=== PATIENT | female | born 1960 | race African-American/Black ===

== ENCOUNTER → 2017-06-23 | Outpatient (CLI) | payer OTHER ==
[2015-05-07 09:43] VITALS: BP 146/79
[~2017-06-23] MED LIST: ADVAIR; ALPR0.5T6 PO; ATIVAN; AZIT250T6 PO; BENZ100C PO; CETI10TA16 PO; CLON0.1T PO; CLONIDINE; DEXL60CA2 PO; FLUO20TA11 PO; FLUT1DIS3 IH; HUM100VI5 SQ; HYDR25TA PO; IPRA12.9 IH; LACT10SO PO; LATA2.5D3 EACHEYE; LISI10TA2 PO; LISINOPRIL; MELO15TA23 PO; OLOP2.5D OU; OMEP40CA5 PO; POTA10CA PO; POTASSIUM; RANI300T PO; ROPI1TAB PO; TIZA4TAB PO; TRAM50TA PO; TRAZ-90 PO; ZOLP10TA4 PO; ZOLPIDEM
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
== END | disposition home or self-care (01) ==
LOC: RAD 16:19
PROVIDERS: ATTEND Nurse Practitioner Family
DX: M47.896 Other spondylosis, lumbar region (principal); M12.88 Other specific arthropathies, not elsewhere classified, other specified site
CPT/HCPCS: 72100

== ENCOUNTER → 2017-06-26 | Outpatient (CLI) | payer OTHER ==
[2015-05-07 09:43] VITALS: BP 146/79
[2017-06-26 10:33] LABS: BASO % 1 % (0-3); EOS # 0.1 x10^3/uL (0.0-0.7); EOS % 2 % (0-3); HEMATOCRIT 35.7 % (36.0-47.0); LYMPH # 2.6 x10^3/uL (1.0-4.8); LYMPH % 42 % (24-48); MEAN CORPUSCULAR HEMOGLOBIN 28 pg (25-35); MEAN CORPUSCULAR HGB CONC 34 g/dL (31-37); MEAN CORPUSCULAR VOLUME 84 fL (79-100); MONO # 0.6 x10^3/uL (0.0-1.1); MONO % 10 % (0-9); NEUT # 2.8 x10^3uL (1.8-7.7); NEUT % 46 % (31-73); PLATELET COUNT 257 x10^3/uL (140-400); RED BLOOD COUNT 4.26 x10^6/uL (3.50-5.40); RED CELL DISTRIBUTION WIDTH 13.5 % (11.5-14.5); WHITE BLOOD COUNT 6.2 x10^3/uL (4.0-11.0)
[2017-06-26 10:37] LABS: BILIRUBIN,URINE NEG (NEG); CLARITY,URINE CLEAR; COLOR,URINE YELLOW; GLUCOSE,URINE NEG (NEG)
[2017-06-26 10:38] LABS: BACTERIA,URINE 0 /HPF (0-FEW); NITRITE,URINE NEG (NEG); RBC,URINE 0 /HPF (0-2); SQUAMOUS EPITHELIAL CELL,UR OCC /LPF; UROBILINOGEN,URINE 0.2 mg/dL (0.2 mg/dL); WBC,URINE 0 /HPF (0-4)
[2017-06-26 10:44] LABS: ALBUMIN 3.6 g/dL (3.4-5.0); DIRECT BILIRUBIN 0.1 mg/dL (0.0-0.2); GFR 68.9; POTASSIUM 3.9 mmol/L (3.5-5.1); TOTAL BILIRUBIN 0.3 mg/dL (0.2-1.0); TOTAL PROTEIN 8.4 g/dL (6.4-8.2)
[2017-06-26 13:47] LABS: THYROID STIM HORMONE (TSH) 2.44 uIU/mL (0.358-3.740)
[2017-06-27 02:11] LABS: HEMOGLOBIN A1C 5.9 % (4.8-5.6)
== END | disposition home or self-care (01) ==
LOC: LAB 09:51
PROVIDERS: ATTEND Nurse Practitioner Family
DX: E10.9 Type 1 diabetes mellitus without complications (principal); R53.83 Other fatigue; Z87.891 Personal history of nicotine dependence
CPT/HCPCS: 36415; 80048; 80061; 80076; 81001; 83036; 84443; 85025

== ENCOUNTER → 2017-08-11 | Outpatient (CLI) | payer OTHER ==
[2015-05-07 09:43] VITALS: BP 146/79
--- NOTE | 2017-08-11 12:00 | CARD ---
MR#: [id number] Date of Study: 08/11/2017 Ordering Physician: SHAHANA GARCIA, Referring Physician: Rebecca ROJAS: Chapo [facility] APPROVED REPORT EXAM: Two-dimensional and M-mode echocardiogram with Doppler and color Doppler. Other Information Quality : Good INDICATION Arrhythmia DX SECOND DEGREE AV BLOCK 2D DIMENSIONS Left Atrium(2D)2.7 (1.6-4.0cm)IVSd1.2 (0.7-1.1cm) Aortic Root(2D)2.7 (2.0-3.7cm)LVDd3.9 (3.9-5.9cm) LVOT Diameter2.0 (1.8-2.4cm)PWd1.2 (0.7-1.1cm) LVDs2.6 (2.5-4.0cm)FS (%) 33.8 % SV41.8 mlLVEF(%)63.3 (>50%) Aortic Valve AoV Peak Zachery.114.4cm/sAoV VTI23.8cm AO Peak GR.5.2mmHgLVOT Peak Zachery.76.5cm/s LVOT VTI 14.55cmAO Mean GR.3mmHg JOCELYN (VMAX)2.76aj3RMA (VTI)1.82cm2 Mitral Valve MV E Xmekfydt39.1cm/sMV DECEL ZUSZ507ac MV A Qcdjkzbc70.6cm/sE/A Ratio1.0 Tricuspid Valve TR P. Izbdumtw315cl/sRAP TXNNHLOW1nuNg TR Peak Gr.18mtXtQTVE61eeXn LEFT VENTRICLE The left ventricle is normal size. There is mild concentric left ventricular hypertrophy. Left ventri keily systolic function is normal. The Ejection Fraction is 55-60%. There is normal LV segmental wall m otion. Transmitral Doppler flow pattern is Grade I-abnormal relaxation pattern. RIGHT VENTRICLE The right ventricle is normal size. The right ventricular systolic function is normal. ATRIA The left atrium size is normal. The right atrium size is normal. The interatrial septum is intact wit h no evidence for an atrial septal defect or patent foramen ovale as noted on 2-D or Doppler imaging. AORTIC VALVE The aortic valve is mildly thickened but opens well. Doppler and Color Flow revealed no significant a ortic regurgitation. There is no significant aortic valvular stenosis. MITRAL VALVE The mitral valve is mildly thickened. There is no evidence of mitral valve prolapse. There is no mitr al valve stenosis. Doppler and Color-flow revealed trace mitral regurgitation. TRICUSPID VALVE The tricuspid valve is normal in structure. Doppler and Color Flow revealed mild tricuspid regurgitat ion. There is no pulmonary hypertension. The PA pressure was estimated at 17 mmHg. There is no tricus pid valve prolapse or vegetation. There is no tricuspid valve stenosis. PULMONIC VALVE The pulmonary valve is normal in structure and function. Doppler and Color Flow revealed no pulmonic valvular regurgitation. There is no pulmonic valvular stenosis. GREAT VESSELS The aortic root is normal in size. The ascending aorta is normal in size. The IVC is normal in size a nd collapses >50% with inspiration. PERICARDIAL EFFUSION There is no pleural effusion. There is no evidence of significant pericardial effusion. Critical Notification Critical Value: No <Conclusion> There is mild concentric left ventricular hypertrophy. Left ventricle systolic function is normal. The Ejection Fraction is 55-60%. There is normal LV segmental wall motion. Signed by : Farzad Stone, Electronically Approved : 08/11/2017 11:59:58
== END | disposition home or self-care (01) ==
LOC: ECHO 10:02
PROVIDERS: ATTEND Internal Medicine Cardiovascular Disease
DX: I44.1 Atrioventricular block, second degree (principal); I51.7 Cardiomegaly; I34.0 Nonrheumatic mitral (valve) insufficiency; E11.22 Type 2 diabetes mellitus with diabetic chronic kidney disease; I12.9 Hypertensive chronic kidney disease with stage 1 through stage 4 chronic kidney disease, or unspecified chronic kidney disease; N18.2 Chronic kidney disease, stage 2 (mild); Z87.891 Personal history of nicotine dependence
CPT/HCPCS: 93306

== ENCOUNTER 2017-09-20 08:45 | Emergency (ER) | payer OTHER ==
[2017-09-20 09:30] LABS: BASO % 0 % (0-3); EOS # 0.1 x10^3/uL (0.0-0.7); EOS % 1 % (0-3); HEMATOCRIT 34.9 % (36.0-47.0); HEMOGLOBIN 11.4 g/dL (12.0-15.5); LYMPH # 2.6 x10^3/uL (1.0-4.8); LYMPH % 23 % (24-48); MEAN CORPUSCULAR HEMOGLOBIN 27 pg (25-35); MEAN CORPUSCULAR HGB CONC 33 g/dL (31-37); MEAN CORPUSCULAR VOLUME 83 fL (79-100); MONO # 1.4 x10^3/uL (0.0-1.1); MONO % 12 % (0-9); NEUT % 63 % (31-73); PLATELET COUNT 277 x10^3/uL (140-400); RED BLOOD COUNT 4.19 x10^6/uL (3.50-5.40); RED CELL DISTRIBUTION WIDTH 13.7 % (11.5-14.5); WHITE BLOOD COUNT 11.2 x10^3/uL (4.0-11.0)
[2017-09-20] MEDS ORDERED: IV NORMAL SALINE 1,000ML 1,000 ML IV ONE (09:30)
[2017-09-20] MEDS ORDERED: IV NORMAL SALINE 500ML 500 ML IV ONE (09:30)
[2017-09-20 09:48] LABS: ALBUMIN 3.4 g/dL (3.4-5.0); ALBUMIN/GLOBULIN RATIO 0.7 (1.0-1.7); CALCIUM 8.3 mg/dL (8.5-10.1); GFR 68.9; POTASSIUM 3.4 mmol/L (3.5-5.1); TOTAL BILIRUBIN 0.2 mg/dL (0.2-1.0); TOTAL PROTEIN 8.1 g/dL (6.4-8.2)
--- NOTE | 2017-09-20 09:50 | RAD ---
PROCEDURE: PORTABLE CHEST 1V CLINICAL INDICATION: syncope COMPARISON: 05/05/2015 FINDINGS: No pneumothorax identified. Cardiac and mediastinal contours unremarkable. No pulmonary consolidation or acute airspace disease. No acute osseous abnormalities identified. Left chest wall cardiac pacer is seen with its leads projecting over the heart. IMPRESSION: No pulmonary consolidation or acute airspace disease.
[2017-09-20 10:31] LABS: BACTERIA,URINE FEW /HPF (0-FEW); BILIRUBIN,URINE NEG (NEG); CLARITY,URINE HAZY; COLOR,URINE YELLOW; GLUCOSE,URINE NEG (NEG); NITRITE,URINE NEG (NEG); SQUAMOUS EPITHELIAL CELL,UR FEW /LPF; UROBILINOGEN,URINE 0.2 mg/dL (0.2 mg/dL); WBC,URINE >40 /HPF (0-4)
[2017-09-20 10:36] VITALS: BP 145/78
[2017-09-20] MEDS ORDERED: SULF1TAB24 PO (10:38)
--- NOTE | 2017-09-20 10:38 | PHYS DOC ---
Past History Past Medical History: Diabetes, Hepatitis, TB, Other Past Surgical History: Knee Replacement, Pacemaker Alcohol Use: None Drug Use: None Adult General Chief Complaint Chief Complaint: SYNCOPE HPI HPI 57-year-old female patient with history of previous episodes of syncope and pacemaker placement complaining of diarrhea for 4 days with 2 episodes of nonbloody loose stool every day and states she had one episode of syncope after she had a bowel movement this morning without chest pain, shortness of breath, focal neuro deficit. Patient states she had previous episode of syncope with negative evaluation. Review of Systems Review of Systems Constitutional: Denies fever or chills [] Eyes: Denies change in visual acuity, redness, or eye pain [] HENT: Denies nasal congestion or sore throat [] Respiratory: Denies cough or shortness of breath [] Cardiovascular: No additional information not addressed in HPI [] GI: Denies abdominal pain, nausea, vomiting, bloody stools, reports diarrhea [] : Denies dysuria or hematuria [] Musculoskeletal: Denies back pain or joint pain [] Integument: Denies rash or skin lesions [] Neurologic: Denies headache, focal weakness or sensory changes , reports syncope [] Endocrine: Denies polyuria or polydipsia [] All other systems were reviewed and found to be within normal limits, except as documented in this note. Current Medications Current Medications Current Medications Medications (Trade) Dose Ordered Sig/Susana Start Time Stop Time Status Last Admin Dose Admin Sodium Chloride 500 ml @ 0 mls/hr 1X ONCE 09/20/17 09:30 09/20/17 09:31 DC 09/20/17 09:30 0 MLS/HR Allergies Allergies Allergies Coded Allergies Type Severity Reaction Last Updated Verified No Known Drug Allergies 05/05/15 No Physical Exam Physical Exam Constitutional: Well developed, well nourished, mild distress, non-toxic appearance, anxious. [] HENT: Normocephalic, atraumatic, bilateral external ears normal, oropharynx moist, no oral exudates, nose normal. [] Eyes: PERRLA, EOMI, conjunctiva normal, no discharge. [] Neck: Normal range of motion, no tenderness, supple, no stridor. [] Cardiovascular:Heart rate regular rhythm, no murmur [] Lungs & Thorax: Bilateral breath sounds clear to auscultation [] Abdomen: Bowel sounds normal, soft, no tenderness, no masses, no pulsatile masses. [] Skin: Warm, dry, no erythema, no rash. [] Back: No tenderness, no CVA tenderness. [] Extremities: No tenderness, no cyanosis, no clubbing, ROM intact, no edema. [] Neurologic: Alert and oriented X 3, normal motor function, normal sensory function, no focal deficits noted. [] Psychologic: Anxious Current Patient Data Vital Signs Vital Signs Date Time Temp Pulse Resp B/P (MAP) Pulse Ox O2 Delivery O2 Flow Rate FiO2 09/20/17 08:50 98.6 74 16 98 Lab Results Laboratory Tests Test 09/20/17 09:05 White Blood Count 11.2 x10^3/uL (4.0-11.0) H Red Blood Count 4.19 x10^6/uL (3.50-5.40) Hemoglobin 11.4 g/dL (12.0-15.5) L Hematocrit 34.9 % (36.0-47.0) L Mean Corpuscular Volume 83 fL (79-100) Mean Corpuscular Hemoglobin 27 pg (25-35) Mean Corpuscular Hemoglobin Concent 33 g/dL (31-37) Red Cell Distribution Width 13.7 % (11.5-14.5) Platelet Count 277 x10^3/uL (140-400) Neutrophils (%) (Auto) 63 % (31-73) Lymphocytes (%) (Auto) 23 % (24-48) L Monocytes (%) (Auto) 12 % (0-9) H Eosinophils (%) (Auto) 1 % (0-3) Basophils (%) (Auto) 0 % (0-3) Neutrophils # (Auto) 7.0 x10^3uL (1.8-7.7) Lymphocytes # (Auto) 2.6 x10^3/uL (1.0-4.8) Monocytes # (Auto) 1.4 x10^3/uL (0.0-1.1) H Eosinophils # (Auto) 0.1 x10^3/uL (0.0-0.7) Basophils # (Auto) 0.0 x10^3/uL (0.0-0.2) Sodium Level 138 mmol/L (136-145) Potassium Level 3.4 mmol/L (3.5-5.1) L Chloride Level 104 mmol/L (98-107) Carbon Dioxide Level 25 mmol/L (21-32) Anion Gap 9 (6-14) Blood Urea Nitrogen 9 mg/dL (7-20) Creatinine 1.0 mg/dL (0.6-1.0) Estimated GFR (Cockcroft-Gault) 68.9 BUN/Creatinine Ratio 9 (6-20) Glucose Level 130 mg/dL (70-99) H Calcium Level 8.3 mg/dL (8.5-10.1) L Total Bilirubin 0.2 mg/dL (0.2-1.0) Aspartate Amino Transferase (AST) 20 U/L (15-37) Alanine Aminotransferase (ALT) 23 U/L (14-59) Alkaline Phosphatase 60 U/L (46-116) Troponin I Quantitative < 0.017 ng/mL (0-0.055) EL-Zco-R-Type Natriuretic Peptide 116 pg/mL (0-124) Total Protein 8.1 g/dL (6.4-8.2) Albumin 3.4 g/dL (3.4-5.0) Albumin/Globulin Ratio 0.7 (1.0-1.7) L Lipase 62 U/L (73-393) L EKG EKG [EKG interpreted by me. EKG at 0 856 showed normal sinus rhythm at rate of 74, poor R-wave progress in anteroseptal leads, no acute ST and T wave abnormality] Radiology/Procedures Radiology/Procedures [] Course & Med Decision Making Course & Med Decision Making Pertinent Labs and Imaging studies reviewed. (See chart for details) Evaluation of patient in ER showed 57-year-old female patient with diarrhea and syncope like her previous episodes of syncope. Patient had unremarkable physical exam and labs except for UTI and felt better with IV fluid. Patient instructed to increase fluid intake and follow with her primary care physician. [] Dragon Disclaimer Dragon Disclaimer This electronic medical record was generated, in whole or in part, using a voice recognition dictation system. Departure Departure: Impression: Primary Impression: Syncope Additional Impressions: Urinary tract infection Diarrhea Disposition: 01 HOME, SELF-CARE (At 1035) Condition: IMPROVED Referrals: KAYLAH HERNANDEZ APRN (PCP) Patient Instructions: Diarrhea, Diet for Diarrhea, Adult, Syncope, Urinary Tract Infection Additional Instructions: Drink plenty of liquids Follow-up with your primary care physician in 3-5 days Return to ER if not getting better Scripts Sulfamethoxazole/Trimethoprim (BACTRIM DS TABLET) 1 Each Tablet 1 TAB PO BID, #6 TAB Prov: HANNAH WAN MD 09/20/17 Problem Qualifiers HANNAH WAN MD Sep 20, 2017 10:38
--- NOTE | 2017-09-20 15:42 | EKG ---
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
== END 2017-09-20 10:47 | disposition home or self-care (01) ==
LOC: ER 08:45
DX: R55 Syncope and collapse (principal); N39.0 Urinary tract infection, site not specified; R19.7 Diarrhea, unspecified; E11.9 Type 2 diabetes mellitus without complications; Z95.0 Presence of cardiac pacemaker
CPT/HCPCS: 36415; 71045; 80053; 81001; 83690; 83880; 84484; 85025; 87086; 93005; 96360; 99285-25; J7030

== ENCOUNTER → 2018-10-26 | Outpatient (CLI) | payer OTHER ==
[~2018-10-26] MED LIST changes: +SULF1TAB24 PO; +TRAZ-86 PO; -TRAZ-90 PO
--- NOTE | 2018-10-26 16:05 | RAD ---
DATE: 11/05/2018 EXAM: MAMMO PRESLEY SCREENING BILATERAL HISTORY: Routine screening COMPARISON: 08/25/2016, 09/26/2016 This study was interpreted with the benefit of Computerized Aided Detection (CAD). Breast Density: DENSE The breast parenchyma is dense, which could reduce the sensitivity of mammography. Breast parenchyma level density D. FINDINGS: 2-D and 3-D tomosynthesis imaging was performed in CC and MLO projections. No new or enlarging breast densities are seen. No suspicious microcalcifications are evident. A pacemaker generator is now projected over the left axillary region. IMPRESSION: There is no mammographic evidence of malignancy in either breast. BI-RADS CATEGORY: 2 BENIGN FINDING(S) RECOMMENDED FOLLOW-UP: 12M 12 MONTH FOLLOW-UP PQRS compliance statement: Patient information was entered into a reminder system with a target due date for the next mammogram. Mammography is a sensitive method for finding small breast cancers, but it does not detect them all and is not a substitute for careful clinical examination. A negative mammogram does not negate a clinically suspicious finding and should not result in delay in biopsying a clinically suspicious abnormality. "Our facility is accredited by the [employer] Mammography Program."
== END | disposition home or self-care (01) ==
LOC: MAMMO 13:29
PROVIDERS: ATTEND Physician Assistant
DX: Z12.31 Encounter for screening mammogram for malignant neoplasm of breast (principal)
CPT/HCPCS: 77063; 77067

== ENCOUNTER → 2019-05-24 | Outpatient (CLI) | payer OTHER ==
[~2019-05-24] MED LIST changes: +HYDR-3165 PO; +OMEP40CA45 PO; -OMEP40CA5 PO; -TIZA4TAB PO; +TIZA4TAB2 PO
--- NOTE | 2019-05-24 13:21 | RAD ---
EXAM: Lumbar spine, 5 views. HISTORY: Pain. COMPARISON: None. FINDINGS: 5 views lumbar spine are obtained. There is mild lumbar levoscoliosis centered at L3. There is minimal retrolisthesis of L2 on L3 and L3 on L4. There is degenerative endplate remodeling with disc space narrowing and osteophytosis and facet arthropathy predominantly at L5-S1, and to a lesser extent, L4-L5. There are few endplate Schmorl's nodes. IMPRESSION: 1. Multilevel degenerative change, primarily at the lower lumbar levels. 2. No acute osseous finding. Electronically signed by: Nedra Vergara MD (05/24/2019 1:18 PM) [facility]
== END | disposition home or self-care (01) ==
LOC: PMG 11:36
PROVIDERS: ATTEND Physician Assistant
DX: M48.07 Spinal stenosis, lumbosacral region (principal); M47.817 Spondylosis without myelopathy or radiculopathy, lumbosacral region; M12.88 Other specific arthropathies, not elsewhere classified, other specified site; M51.47 Schmorl's nodes, lumbosacral region; M25.78 Osteophyte, vertebrae; M41.86 Other forms of scoliosis, lumbar region
CPT/HCPCS: 72110

== ENCOUNTER 2019-06-21 09:00 | Emergency (ER) | payer OTHER ==
[~2019-06-21] VITALS: Ht 317.5 cm; Wt 53.1 kg
[~2019-06-21 09:00] MED LIST changes: -HYDR-3165 PO
[2019-06-21 09:02] VITALS: BP 145/78
[2019-06-21] MEDS ORDERED: IV NORMAL SALINE 1,000ML 1,000 ML IV ONE (09:15)
[2019-06-21 09:37] LABS: BASO % 1 % (0-3); EOS # 0.2 x10^3/uL (0.0-0.7); EOS % 3 % (0-3); HEMATOCRIT 34.2 % (36.0-47.0); LYMPH # 2.7 x10^3/uL (1.0-4.8); LYMPH % 45 % (24-48); MEAN CORPUSCULAR HEMOGLOBIN 28 pg (25-35); MEAN CORPUSCULAR HGB CONC 32 g/dL (31-37); MEAN CORPUSCULAR VOLUME 86 fL (79-100); MONO # 0.6 x10^3/uL (0.0-1.1); MONO % 9 % (0-9); NEUT # 2.6 x10^3uL (1.8-7.7); NEUT % 42 % (31-73); PLATELET COUNT 224 x10^3/uL (140-400); RED BLOOD COUNT 3.97 x10^6/uL (3.50-5.40); RED CELL DISTRIBUTION WIDTH 14.7 % (11.5-14.5); WHITE BLOOD COUNT 6.2 x10^3/uL (4.0-11.0)
[2019-06-21 09:51] LABS: ALBUMIN 3.4 g/dL (3.4-5.0); ALBUMIN/GLOBULIN RATIO 0.8 (1.0-1.7); CALCIUM 8.7 mg/dL (8.5-10.1); CREATININE 0.8 mg/dL (0.6-1.0); GFR 88.5; TOTAL BILIRUBIN 0.3 mg/dL (0.2-1.0); TOTAL PROTEIN 7.6 g/dL (6.4-8.2)
--- NOTE | 2019-06-21 10:02 | EKG ---
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
[2019-06-21] MEDS ORDERED: HYDR-3165 PO (11:49)
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
[2019-06-21] MEDS ORDERED: HYDROcodone/APAP 7.5/325MG 1 TAB TABLET PO ONE (12:00)
== END 2019-06-21 12:13 | disposition home or self-care (01) ==
LOC: ER 09:00
DX: R07.89 Other chest pain (principal); M54.2 Cervicalgia; M54.6 Pain in thoracic spine; E11.9 Type 2 diabetes mellitus without complications; Z95.0 Presence of cardiac pacemaker; V89.2XXA Person injured in unspecified motor-vehicle accident, traffic, initial encounter; Y93.I9 Activity, other involving external motion; Y92.488 Other paved roadways as the place of occurrence of the external cause; Y99.8 Other external cause status
CPT/HCPCS: 36415; 70450; 71250; 72125; 73130; 80053; 84484; 85025; 93005; 96360; 99285-25; J7030

== ENCOUNTER → 2019-09-07 | Outpatient (CLI) | payer OTHER ==
[~2019-09-07] MED LIST changes: +HYDR-3165 PO; +TRAZ-125 PO; -TRAZ-86 PO
--- NOTE | 2019-09-08 09:50 | RAD ---
Examination: CERVICAL SPINE 2-3V History: Cervicalgia Comparison/Correlation: 06/21/2019 CT scan cervical spine without contrast, 02/07/2016 cervical spine x-ray exam Findings: Total 3 images of the cervical spine were obtained. Straightened appearance of the cervical spine is present. This may represent normal variant or spasm. It is similar to prior exam. Spurring is notable at C4 anteriorly. Spurring from C5 to C7 anteriorly noted. Moderate disc space narrowing from C5 to C7 noted. No acute fracture or bone distortion. Pacemaker and leads are partially seen. Impression: Degenerative changes. No suspicious process. Electronically signed by: Vargas Liz MD (09/08/2019 9:47 AM) [facility]
== END | disposition home or self-care (01) ==
LOC: PMG 15:32
PROVIDERS: ATTEND Physician Assistant
DX: M47.812 Spondylosis without myelopathy or radiculopathy, cervical region (principal); M48.02 Spinal stenosis, cervical region; Z95.0 Presence of cardiac pacemaker
CPT/HCPCS: 72040

== ENCOUNTER → 2019-10-28 | Outpatient (CLI) | payer OTHER ==
--- NOTE | 2019-10-31 10:32 | RAD ---
History: Routine screening. Technique: Bilateral digital mammographic routine views were obtained with 2-D and 3-D technique CAD - computer aided detection. Comparison: 10/26/2018, 08/25/2016.. Findings: Breast Tissue Density C : The breast tissue is heterogeneously dense. Scattered fibroglandular elements may obscure underlying pathology. There are no suspicious masses, microcalcifications or areas of architectural distortion. MRI compatible left chest pacemaker redemonstrated. Impression: No suspicious findings. BI-RADS Category 1: Negative. Normal interval followup. Your mammogram demonstrates that you have dense breast tissue, which could hide abnormalities, and if you have other risk factors for breast cancer that have been identified, you might benefit from supplemental screening tests that may be suggested by your ordering physician. Dense breast tissue, in and of itself, is a relatively common condition. This information is not provided to cause undue concern, but rather to raise your awareness and to promote discussion with your physician regarding the presence of other risk factors, in addition to dense breast tissue. A report of your mammography results will be sent to you and your physician. You should contact your physician if you have any questions or concerns regarding this report. A mammogram does not have 100% sensitivity and therefore a negative imaging study should not delay further work up of a suspicious abnormality. The patient will receive a letter with the results in the mail. Patient information is entered into the reminder system with a target due date for the next screening mammogram. The patient will receive a reminder. "Our facility is accredited by the [employer] Mammography Program." BI-RADS 1 -- negative findings (within normal)
== END | disposition home or self-care (01) ==
LOC: MAMMO 11:23
PROVIDERS: ATTEND Physician Assistant
DX: Z12.31 Encounter for screening mammogram for malignant neoplasm of breast (principal)
CPT/HCPCS: 77063; 77067

== ENCOUNTER → 2020-05-22 | Outpatient (CLI) | payer OTHER ==
[~2020-05-22] MED LIST changes: -OLOP2.5D OU; +OLOP2.5D12 OU
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
== END ==
LOC: PMG 08:50
PROVIDERS: ATTEND Physician Assistant
DX: R06.09 Other forms of dyspnea (principal)
CPT/HCPCS: 71046

== ENCOUNTER → 2020-05-30 | Outpatient (CLI) | payer OTHER ==
[2020-05-30 11:20] LABS: CREATININE 1.1 mg/dL (0.6-1.0); GFR 61.1
[2020-05-30] MEDS: IOHEXOL 300 MG/ML 75 ML VIAL. IV ONE (11:42)
--- NOTE | 2020-05-30 14:14 | RAD ---
Examination: CT chest with IV contrast HISTORY: Dyspnea on exertion COMPARISON: 06/21/2019 TECHNIQUE: Axial CT images of chest were performed with IV contrast. Coronal and sagittal reformats are performed Exposure: One or more of the following individualized dose reduction techniques were utilized for this examination: 1. Automated exposure control 2. Adjustment of the mA and/or kV according to patient size 3. Use of iterative reconstruction technique FINDINGS: The visualized thyroid gland grossly appears unremarkable. The central airways are patent. The heart size grossly appears unremarkable. The caliber of the aorta grossly appears unremarkable. No evidence radiologically significant mediastinal lymphadenopathy is identified. Minimal bibasilar lung atelectasis. The liver, spleen, adrenals grossly appears unremarkable. Mild degenerative changes thoracic spine. IMPRESSION: 1.Minimal bibasilar lung atelectasis. Electronically signed by: Bill Barba MD (05/30/2020 2:10 PM) [id number]
== END ==
LOC: CT 10:23
PROVIDERS: ATTEND Physician Assistant
DX: J98.11 Atelectasis (principal); R06.09 Other forms of dyspnea; R91.8 Other nonspecific abnormal finding of lung field
CPT/HCPCS: 36415; 71260; 82565; Q9967

== ENCOUNTER 2021-01-28 20:22 | Emergency (ER) | payer OTHER ==
[~2021-01-28] VITALS: Ht 166.4 cm; Wt 73.1 kg
[~2021-01-28 20:22] MED LIST changes: -LACT10SO PO; +LACT10SO2 PO; +LISI10TA16 PO; -LISI10TA2 PO; -OMEP40CA45 PO; +OMEP40CA7 PO
[2021-01-28 20:38] VITALS: BP 191/89
== END 2021-01-28 22:02 | disposition left against medical advice (07) ==
LOC: ER 20:22
DX: M54.2 Cervicalgia (principal); H92.01 Otalgia, right ear; Z53.21 Procedure and treatment not carried out due to patient leaving prior to being seen by health care provider

== ENCOUNTER → 2021-09-18 | Outpatient (CLI) | payer OTHER ==
[~2021-09-18] MED LIST changes: +TIZA-75 PO; -TIZA4TAB2 PO
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
== END ==
LOC: RAD 11:53
PROVIDERS: ATTEND Physician Assistant
DX: M19.042 Primary osteoarthritis, left hand (principal)
CPT/HCPCS: 73140

== ENCOUNTER → 2021-09-25 | Outpatient (CLI) | payer OTHER ==
--- NOTE | 2021-09-25 17:05 | RAD ---
Exam: Left foot 3 views INDICATION: Left foot pain TECHNIQUE: Frontal, lateral and oblique views of the left foot Comparisons: None FINDINGS: Bone mineralization is normal. No acute or healed fractures. Soft tissues are unremarkable. Joint spa geo are well-maintained. IMPRESSION: No acute osseous abnormality. Electronically signed by: New Boyce MD (09/25/2021 5:02 PM) [facility]
== END ==
LOC: PMG 16:37
PROVIDERS: ATTEND Nurse Practitioner Family
DX: S99.922A Unspecified injury of left foot, initial encounter (principal); X58.XXXA Exposure to other specified factors, initial encounter; Y93.89 Activity, other specified; Y92.89 Other specified places as the place of occurrence of the external cause; Y99.8 Other external cause status
CPT/HCPCS: 73630

== ENCOUNTER → 2021-09-25 | Outpatient (CLI) | payer OTHER ==
--- NOTE | 2021-11-11 14:21 | RAD ---
EXAM: Carotid Doppler sonogram. HISTORY: Syncope. Hypertension. TECHNIQUE: Urbina scale and color Doppler sonographic evaluation of the neck with spectral waveform robina lysis was performed and static images are submitted for review. FINDINGS: There is mild atherosclerotic plaque involving the carotid bulbs and right internal carotid artery. The peak systolic velocity within the right common carotid artery is 160 cm/sec. The peak systolic ve locity within the right internal carotid artery is 127 cm/sec and the end diastolic velocity within t he right internal carotid artery is 44 cm/sec. The right ICA/CCA ratio is 1.4. The peak systolic velocity within the left common carotid artery is 169 cm/sec. The peak systolic hank ocity within the left internal carotid artery is 116 cm/sec and the end diastolic velocity within the left internal carotid artery is 45 cm/sec. The left ICA/CCA ratio is 1.3. There is normal antegrade flow within both vertebral arteries. IMPRESSION: Doppler findings consistent with 50-69 percent stenosis involving the right ICA and less than 50 percent stenosis involving the left ICA. PQRS Compliance Statement - Stenosis calculations for CT, MR and conventional angiography are based u jayshree measurement of the distal ICA diameter in accordance with the NASCET methodology. Stenosis calcu lations for carotid ultrasound studies are derived from validated velocity criteria which are known t o correlate with the NASCET methodology. Electronically signed by: Nedra Vergara MD (11/11/2021 2:19 PM) [facility]
== END ==
LOC: US 15:48
PROVIDERS: ATTEND Physician Assistant
DX: I65.23 Occlusion and stenosis of bilateral carotid arteries (principal); R51.9 Headache, unspecified; I10 Essential (primary) hypertension; R55 Syncope and collapse; E78.5 Hyperlipidemia, unspecified; Z87.891 Personal history of nicotine dependence
CPT/HCPCS: 93880